=== PATIENT | female | born 1975 | race African-American/Black ===

== ENCOUNTER → 2021-01-24 13:43 | Outpatient (BNVA) | payer OTHER, SELFPAY | PROVIDERS: Visit Provider Physician Assistant Medical | DX: S89.91XA Unspecified injury of right lower leg, initial encounter (principal); X58.XXXA Exposure to other specified factors, initial encounter; M25.461 Effusion, right knee | CPT/HCPCS: 99203 ==

== ENCOUNTER → 2021-01-31 11:46 | Outpatient (BNVA) | payer OTHER, SELFPAY | PROVIDERS: Visit Provider Physician Assistant | DX: S83.91XD Sprain of unspecified site of right knee, subsequent encounter (principal); X58.XXXD Exposure to other specified factors, subsequent encounter | CPT/HCPCS: 99213 ==

== ENCOUNTER → 2022-03-13 13:52 | Outpatient (BNVA) | payer OTHER, SELFPAY | PROVIDERS: Visit Provider Physician Assistant Medical | DX: S46.812A Strain of other muscles, fascia and tendons at shoulder and upper arm level, left arm, initial encounter (principal); S16.1XXA Strain of muscle, fascia and tendon at neck level, initial encounter; X50.0XXA Overexertion from strenuous movement or load, initial encounter | CPT/HCPCS: 99202 ==

== ENCOUNTER → 2022-03-17 14:00 | Outpatient (BNVA) | payer OTHER, SELFPAY | PROVIDERS: Visit Provider Physician Assistant | DX: S46.812A Strain of other muscles, fascia and tendons at shoulder and upper arm level, left arm, initial encounter (principal); S16.1XXA Strain of muscle, fascia and tendon at neck level, initial encounter; X50.0XXA Overexertion from strenuous movement or load, initial encounter | CPT/HCPCS: 99214 ==

== ENCOUNTER → 2022-03-31 14:29 | Outpatient (BNVA) | payer OTHER, SELFPAY | PROVIDERS: Visit Provider Physician Assistant | DX: S46.812A Strain of other muscles, fascia and tendons at shoulder and upper arm level, left arm, initial encounter (principal); X50.0XXA Overexertion from strenuous movement or load, initial encounter | CPT/HCPCS: 72040; 99213 ==

== ENCOUNTER → 2022-04-14 13:59 | Outpatient (BNVA) | payer OTHER, SELFPAY | PROVIDERS: Visit Provider Physician Assistant | DX: S46.812D Strain of other muscles, fascia and tendons at shoulder and upper arm level, left arm, subsequent encounter (principal); S16.1XXD Strain of muscle, fascia and tendon at neck level, subsequent encounter; X50.0XXD Overexertion from strenuous movement or load, subsequent encounter | CPT/HCPCS: 99215 ==

== ENCOUNTER 2022-04-27 10:05 | Outpatient (REF) | payer OTHER, SELFPAY ==
--- NOTE | ~2022-04-27 | MR_ITS ---
MR CERVICAL SPINE WITHOUT CONTRAST CLINICAL INFORMATION: Cervical strain with radiculopathy. COMPARISON: Cervical spine radiographs 03/31/2022. TECHNIQUE: MRI of the cervical spine was obtained using routine sequences without contrast. FINDINGS: Cervical alignment is normal. The vertebral body heights are maintained. Disc volumes are preserved. There are Modic type I endplate signal changes at C6-C7. There is no additional bone marrow edema. There are no acute fractures. Craniocervical junction is unremarkable. Partially imaged intracranial compartment is unremarkable. No cord signal changes accounting for artifact. Cervical arterial flow voids are maintained. There is a 6 mm nodule within the left thyroid lobe that is below size criteria for imaging follow-up. The C2-C3, C3-C4, and C4-C5 disc contours are normal. There is no central canal stenosis and there is no foraminal stenosis at these levels. C5-C6: Small annular disc bulge. Mild bilateral facet arthropathy. No central canal stenosis and no foraminal stenosis. C6-C7: There is a broad-based central disc protrusion that flattens the ventral cord and along with ligamentum flavum thickening results in moderate to severe central canal stenosis. No foraminal stenosis. C7-T1: Disc contour remains normal. No central canal stenosis and no foraminal stenosis. MR/MR cervical spine wo con IMPRESSION: At C6-C7, there is a broad-based central disc protrusion that along with ligamentum flavum thickening results in moderate to severe central canal stenosis and mass effect on the cord.
== END 2022-04-27 10:06 | disposition home or self-care (01) ==
LOC: HO.MRI 10:05
PROVIDERS: Visit Provider Physician Assistant Medical
DX: S16.1XXD Strain of muscle, fascia and tendon at neck level, subsequent encounter (principal); M54.12 Radiculopathy, cervical region
CPT/HCPCS: 72141

== ENCOUNTER → 2022-04-28 13:14 | Outpatient (BNVA) | payer OTHER, SELFPAY | PROVIDERS: Visit Provider Physician Assistant | DX: M50.123 Cervical disc disorder at C6-C7 level with radiculopathy (principal); M25.512 Pain in left shoulder | CPT/HCPCS: 99213 ==

== ENCOUNTER → 2022-05-11 15:00 | Outpatient (BNVA) | payer OTHER, SELFPAY | PROVIDERS: Visit Provider Physician Assistant | DX: S16.1XXD Strain of muscle, fascia and tendon at neck level, subsequent encounter (principal); X50.0XXD Overexertion from strenuous movement or load, subsequent encounter; M25.512 Pain in left shoulder | CPT/HCPCS: 99215 ==